=== PATIENT | male | born 1955 | race Caucasian/White ===

== ENCOUNTER 2020-05-17 13:06 | Outpatient (RCR) | payer OTHER, SELFPAY ==
[2020-05-17] MEDS: COVID-19 VACC, MRNA(PFIZER)/PF 30 MCG/0.3 ML SYRINGE IM (17:50)
[2020-06-07] MEDS: COVID-19 VACC, MRNA(PFIZER)/PF 30 MCG/0.3 ML SYRINGE IM (17:31)
== END 2020-08-13 23:59 ==
LOC: IMMUN 13:06
PROVIDERS: PCP Student in an Organized Health Care Education/Training Program; Visit Provider Family Medicine
DX: Z23 Encounter for immunization (principal)
CPT/HCPCS: 0001A; 0002A; 91300